=== PATIENT | male | born 1970 | race African-American/Black ===

== ENCOUNTER 2020-12-29 09:32 | Emergency (ER) | payer OTHER ==
[~2020-12-29] VITALS: Ht 180.3 cm; Wt 142.9 kg
== END 2020-12-29 10:04 | disposition home or self-care (01) ==
LOC: FSED 09:40
DX: N63.20 Unspecified lump in the left breast, unspecified quadrant (principal); J45.909 Unspecified asthma, uncomplicated
CPT/HCPCS: 99282